=== PATIENT | female | born 2000 | race Caucasian/White ===

== ENCOUNTER 2024-05-25 14:41 | Emergency (ER) | payer MEDICAID ==
[~2024-05-25] VITALS: Ht 167.6 cm; Wt 58.0 kg
[2024-05-25 14:48] VITALS: O2SAT 98
[2024-05-25] MEDS: BACITRACIN ZINC OINT UDPKT TOP ONE (16:45)
[2024-05-25] MEDS: LIDOCAINE HCL/PF 1% 10 MG/ML 5ML VIAL INFIL ONE (16:45)
[2024-05-25] MEDS: IBUPROFEN 600MG TABLET PO ONE (16:45)
[2024-05-25] MEDS ORDERED: BO1 TP (17:36)
[2024-05-25] MEDS ORDERED: IBUP-2029 MT (17:36)
[2024-05-25] MEDS: TETANUS, DIPHTHERIA, PERTUSSIS VAC/PF 0.5ML (>10YR OLD) IM ONE (18:08)
[2024-05-25 18:15] VITALS: BP 118/50; PULSE 68; RESP 18; TEMP 36.78072; O2SAT 98
== END 2024-05-25 18:15 | disposition home or self-care (01) ==
LOC: ER 14:41
DX: S61.210A Laceration without foreign body of right index finger without damage to nail, initial encounter (principal); W45.8XXA Other foreign body or object entering through skin, initial encounter; Y93.89 Activity, other specified; Y92.89 Other specified places as the place of occurrence of the external cause; Y99.8 Other external cause status
CPT/HCPCS: 99283; 12001; J3490